=== PATIENT | male | born 1975 | race Caucasian/White ===

== ENCOUNTER 2019-02-03 21:25 | Emergency (ER) | payer SELFPAY ==
[~2019-02-03] VITALS: Ht 165.1 cm; Wt 81.6 kg
[2019-02-03 21:59] VITALS: BP 153/103
[2019-02-03 22:27] LABS: BASOPHILS # (AUTO) 0.1 K/uL (0.00-0.22); BASOPHILS % (AUTO) 1.2 % (0.0-2.0); EOSINOPHILS # (AUTO) 0.2 K/uL (0-0.4); EOSINOPHILS % (AUTO) 3.7 % (0.0-4.0); HEMATOCRIT 45.2 % (36-52); HEMOGLOBIN 15.5 g/dL (12.0-18.0); LYMPHOCYTES # (AUTO) 2.1 K/uL (2.0-11.5); LYMPHOCYTES % (AUTO) 38.9 % (20.5-51.1); MEAN CORPUSCULAR HEMOGLOBIN 32 pg (27-31); MEAN CORPUSCULAR HGB CONC 34 g/dL (33-37); MEAN CORPUSCULAR VOLUME 93.3 fL (80-94); MONOCYTES # (AUTO) 0.6 K/uL (0.8-1.0); MONOCYTES % (AUTO) 11.7 % (1.7-9.3); NEUTROPHILS # (AUTO) 2.4 K/uL (1.8-7.7); NEUTROPHILS % (AUTO) 44.5 % (42.2-75.2); PLATELET COUNT (AUTO) 168 K/uL (140-450); RED BLOOD CELL COUNT(AUTO) 4.84 MIL/uL (4.20-6.10); RED CELL DISTRIBUTION WIDTH 12.9 % (11.6-13.7); WHITE BLOOD COUNT (AUTO) 5.4 K/uL (4.8-10.8)
--- NOTE | 2019-02-03 22:36 | NUR ---
PT AMBULATED TO BED #1
[2019-02-03 22:45] LABS: ALBUMIN 3.9 g/dL (3.4-5.0); ANION GAP 15.6 (8-16); CARBON DIOXIDE 29.2 mmol/L (21-32); CREATININE 0.7 mg/dL (0.7-1.3); POTASSIUM 3.8 mmol/L (3.5-5.1); TOTAL BILIRUBIN 0.4 mg/dL (0.0-1.0)
--- NOTE | 2019-02-03 22:45 | NUR ---
43 Y/O MALE PRESENTS TO ED, C/O OF CHEST PAIN. PT STATES PAIN HAS BEEN INTERMITTENT X 1 MONTH BUT WORSENED TODAY. PAIN IS 7/10; RADIATES TO LEFT ARM. EKG PERFORMED AT TRIAGE; SINUS TACHY. PT DENIES ANY HX. PT DENIES TAKING ANY MEDICATIONS TO HELP ALLEVIATE PAIN. STATES HAVING HEADACHE "SOMETIMES". DENIES ANY N/V/D. DENIES ANY DIZZINESS. PT VSS. ERMD AWARE. WILL CONTINUE TO MONITOR.
--- NOTE | 2019-02-03 23:03 | NUR ---
CRITICAL LAB REPORTED TO DR SHARIF. GLUCOSE [id number]. PERFORMED FINGER STICK, [id number]. WILL CONTINUE TO MONITOR.
[2019-02-03] MEDS ORDERED: NACL 0.9% 1,000 ML IV ONE (23:05)
[2019-02-04 01:30] VITALS: BP 125/71
--- NOTE | 2019-02-04 01:35 | NUR ---
PT DISCHARGED WITH PAPERWORK. RX MOTRIN FOR PAIN. EDUCATED PT REGARDING MEDICATIONS AND S/E. EDUCATED PT REGARDING D/C DIAGNOSIS AND INSTRUCTIONS. PT VERBALIZED UNDERSTANDING OF TEACHING. TOLD PT TO FOLLOW UP WITH PCP AND WHEN TO RETURN TO ED. PT VSS. DENIES ANY CHEST PAIN. ALL QUESTIONS ANSWERED.
== END 2019-02-04 01:35 | disposition home or self-care (01) ==
LOC: MED 21:25
DX: R07.89 Other chest pain (principal); R73.9 Hyperglycemia, unspecified; F17.200 Nicotine dependence, unspecified, uncomplicated
CPT/HCPCS: 36415; 71045; 80053; 81002; 82948; 84484; 85025; 99284; J7030